=== PATIENT | female | born 1960 | race Caucasian/White ===

== ENCOUNTER 2018-11-21 11:40 | Inpatient (IN) ==
[2018-11-21] MEDS ORDERED: NS 500 ML IV ONE (12:35)
--- NOTE | 2018-11-21 13:37 | Diag Imaging Result Doc PS360 ---
CT HEAD W/O CONTRAST - 11/21/2018 INDICATION: generalized weakness COMPARISON: None FINDINGS: The ventricles and sulci are normal in size and contour. No intracranial mass or hemorrhage. The skull is intact. The sinuses mastoids and middle ears are clear. IMPRESSION: Negative exam. This exam was performed using automated exposure control, adjustment of mA or kV according to patient size, and/or use of iterative reconstruction technique Electronically signed by Maxim Irby 11/21/2018 1:35 PM
[2018-11-21 13:43] LABS: ALB/GLOB RATIO 1.1; ALBUMIN 3.6 g/dL (3.5-5.0); CALCIUM 7.6 mg/dL (8.8-10.2); CREATININE 2.5 mg/dL (0.5-0.9); POTASSIUM 5.4 mmol/L (3.5-5.1); TOTAL BILIRUBIN 0.75 mg/dL (0.20-1.00); TOTAL PROTEIN 6.9 g/dL (6.3-8.3)
--- NOTE | 2018-11-21 14:14 | Diag Imaging Result Doc PS360 ---
EXAM: CHEST-2 VIEWS HISTORY: hypotension, hx of CHF TECHNIQUE: Chest two views COMPARISON: None. FINDINGS: Poor inspiratory effort. The heart is mildly enlarged. There are sternal wires and surgical clips. The vessels are not distended. There are no infiltrates. No pleural effusions. IMPRESSION: Mild cardiomegaly. Electronically signed by Fernando Serrano 11/21/2018 2:12 PM
[2018-11-21 14:15] LABS: BASO# 0.04 X1000 (0.0-0.2); BASO% 0.2 % (0.0-0.8); EOS# 0.09 X1000 (0.0-0.7); EOS% 0.5 % (0.0-10.0); HEMATOCRIT 34.6 % (37.0-47.0); HEMOGLOBIN 10.4 g/dL (12.0-16.0); IMM GRAN# 0.04 X1000 (0.0-0.04); IMM GRAN% 0.2 % (0.0-0.5); LYMPH% 7.6 % (20.5-51.1); MCH 27.6 PG (27-31); MCHC 30.1 g/dL (33-37); MCV 91.8 FL (81-99); MONO# 0.75 X1000 (0.11-0.59); MONO% 4.4 % (1.7-9.3); MPV 10.1 FL (7.4-10.4); NEUT# 14.95 X1000 (1.4-6.5); NEUT% 87.1 % (42.2-75.2); PLT 375 X1000 (130-400); RBC 3.77 XMIL (4.2-5.4); RDW 16.1 % (11.5-14.5); WBC 17.17 X1000 (4.8-10.8)
--- NOTE | 2018-11-21 14:18 | Diag Imaging Result Doc PS360 ---
EXAM: XRAY PELVIS W/HIP 2-3VW LT INDICATION: left hip pain TECHNIQUE: 3 views COMPARISON: None. FINDINGS: There is no discrete fracture, dislocation, or significant intrinsic osseous lesion. The left hip joint appears to be well preserved. The surrounding soft tissues are essentially unremarkable. IMPRESSION: Essentially unremarkable plain radiograph of the pelvis and left hip. Electronically signed by Henrik Ball 11/21/2018 2:15 PM
[2018-11-21 14:54] LABS: BILIRUBIN URINE NEGATIVE (NEGATIVE); BLOOD URINE NEGATIVE (NEGATIVE); COLOR YELLOW; GLUCOSE URINE NEGATIVE (NEGATIVE); KETONE URINE NEGATIVE (NEGATIVE); LEUKOCYTES URINE TRACE (NEGATIVE); NITRITE URINE NEGATIVE (NEGATIVE); PH URINE 5.5; PROTEIN URINE NEGATIVE (NEGATIVE); TURBIDITY URINE CLEAR (CLEAR); UR EPITHELIAL CELLS <10 /HPF (<10); URINE BACTERIA NEGATIVE /HPF; URINE RBC <10 /HPF (<10); URINE SOURCE CATH; URINE WBC <10 /HPF (<10); UROBILINOGEN URINE NORMAL (NORMAL)
--- NOTE | 2018-11-21 15:31 | EKG Report ---
Test Performed on : 11/21/2018 2:40:24 PM Test Reason : hypotension Blood Pressure : / mmHG Vent. Rate : 095 BPM Atrial Rate : 095 BPM P-R Int : 154 ms QRS Dur : 074 ms QT Int : 376 ms P-R-T Axes : 043 080 186 degrees QTc Int : 472 ms Normal sinus rhythm. Low voltage QRS Septal infarct , age undetermined T wave abnormality, consider lateral ischemia Abnormal ECG No previous ECGs available Unconfirmed Result
[2018-11-21 15:43] LABS: LYMPHS 9 % (21-51); MONO 2 % (1-9); SEGS 89 % (42-75)
[2018-11-21 15:44] LABS: LARGE PLATELETS OCCASIONAL
[2018-11-21] MEDS ORDERED: D50W SYRINGE IV ONE (16:00)
[2018-11-21 17:10] LABS: INR 1.19; PROTIME 16.1 Seconds (11.0-16.0)
[2018-11-21 17:10] LABS: UR AMPHETAMINES QUAL NONE DETECTED (NONE DETECT); UR BARBITUATES QUAL NONE DETECTED (NONE DETECT); UR BENZODIAZEPIN QUAL NONE DETECTED (NONE DETECT); UR CANNABINOIDS QUAL NONE DETECTED (NONE DETECT); UR COCAINE QUAL NONE DETECTED (NONE DETECT); UR METHADONE QUAL NONE DETECTED (NONE DETECT); UR OPIATES QUAL NONE DETECTED (NONE DETECT); UR OXYCODONE QUAL NONE DETECTED (NONE DETECT); UR PCP QUAL NONE DETECTED (NONE DETECT)
[2018-11-21] MEDS ORDERED: SODIUM CHLORIDE 0.9% INJ SCH (17:22)
[2018-11-21 17:23] LABS: FREE T4 1.41 ng/dL (0.93-1.70); TSH 3.05 uIUmL (0.27-4.20)
[2018-11-21] MEDS ORDERED: NS 1,000 ML IV ONE ×2 (17:24→22:00)
--- NOTE | 2018-11-21 18:25 | HISTORY AND PHYSICAL ---
DATE OF ADMISSION: 11/21/2018. CC: Left hip pain. HISTORY OF PRESENT ILLNESS: Ms. Altman is a [id number] female from [place], [place] visiting here in [place] for her brother's as he recently . Of note: she was also diagnosed with c-diff colitis around three weeks ago and is still taking her p.o. vancomycin, she was inpatient for one week at one of the local hospitals in her area. She started complaining of left hip pain on Wednesday which was progressively worse throughout the weekend, and she finally came to the ER for evaluation. However, in the ER, she was noted to be lethargic and difficult to arouse. She was noted to be hypotensive on exam as well as slightly tachycardic. A head CT was done which did not show anything acute. Hip x-ray was also done and found to be negative. Laboratory work showed a white count of 17,000, an acute kidney injury with a creatinine of 2.5 and a serum glucose of 49 which was treated appropriately in the ER. Despite that therapy, she remains somewhat lethargic and disoriented, so it was felt that, in combination with her history, laboratory data and vital signs, she would need admission for stabilization. PAST MEDICAL HISTORY: 1. Recent c-diff colitis diagnosis on current p.o. vancomycin. 2. Diabetes mellitus type 2 requiring insulin. 3. Coronary artery disease status post coronary artery bypass grafting last year in [place]. 4. Report of congestive heart failure, EF unknown. 5. Iron deficiency. 6. Hypertension. 7. Hyperlipidemia. SURGICAL HISTORY: Coronary artery bypass grafting. SOCIAL HISTORY: She denies tobacco, alcohol or drug use. She is . Her is at the bedside. She is from [place], [place] which is somewhere in the area of [place]. She is down in [facility] for her brother's . FAMILY HISTORY: Father from [place]. Mother in [place]. Brother recently , unsure of the cause. REVIEW OF SYSTEMS: Difficult to obtain due to lethargy, but a limited 10 point review of systems was obtained and found to be negative with the exception of the HPI. ALLERGIES: NOT RECORDED. HOME MEDICATIONS: 1. Lipitor 80 mg p.o. at hour of sleep. 2. Bumex 1 mg p.o. b.i.d. 3. Coreg 12.5 mg p.o. b.i.d. 4. Clopidogrel 75 mg p.o. daily. 5. Iron sulfate 325 mg p.o. t.i.d. 6. Neurontin 600 mg p.o. 3-4 times a day. 7. Levemir 75 units subcutaneously daily. 8. Isosorbide dinitrate 10 mg p.o. b.i.d. 9. KCl 20 mEq p.o. b.i.d. 10.Vancomycin 125 mg p.o. q. 6 hours. PHYSICAL EXAMINATION: VITAL SIGNS: Blood pressure 95/54, heart rate 95, respiratory rate 16, O2 saturation 96% on room air and temperature is not recorded. GENERAL: Obese, female lying in the hospital bed in no acute distress. NEUROLOGICAL: She is lethargic, but she opens her eyes easily to verbal stimulus. She follows commands without any focal deficits. HEENT: Normocephalic, atraumatic. Pupils are equal but sluggish to light response bilaterally. Oral mucosa is dry and tacky. Posterior oropharynx is clear. NECK: Supple. Trachea is midline. There is no JVD. CHEST: Clear to auscultation. CV: Regular rate and rhythm. S1, S2 noted. There are no murmurs. GI: Soft, nondistended and nontender. Bowel sounds are positive. EXTREMITIES: 1+ edema bilaterally. The left extremity reveals range of motion of the hip is intact without pain on range of motion. DIAGNOSTIC DATA: Head CT is negative. Hip and pelvis x-ray on the left is negative. EKG shows a sinus rhythm with nonspecific ST changes. Chest x-ray shows mild cardiomegaly with poor inspiratory effort. WBC is 17.17, hemoglobin 10.4, hematocrit 34.6 and platelet count 375. Sodium 141, potassium 5.4, chloride 97, CO2 28, anion gap 16, BUN 45, creatinine 2.5, glucose 49, calcium 7.6, AST 14, ALT 15, alk phos 147, and proBNP 6761. Urinalysis is negative. ASSESSMENT AND PLAN: 1. Toxic metabolic encephalopathy: Unclear as to the cause of her encephalopathy. However, a head CT is negative. She is hypotensive and has c-diff as well as hypoglycemia all of which could be causing her symptoms. We will check a drug screen, alcohol level, thyroid function, B12 and folate as well as treat her hypoglycemia and recheck serum glucose. If any worsening of neurological status, may consider an MRI. 2. Sepsis: The patient is tachycardic and hypotensive with a white count and source of c-diff. Blood cultures have been obtained. We will reculture her stool and continue her p.o. vancomycin and hydrate as she is volume depleted. No other source of infection at this time. 3. Acute kidney injury: Baseline unknown. Will check a renal ultrasound, urine electrolytes, and follow strict Is and Os, hydrate and remove any offending medications. If any worsening, we will consult renal. At this time, she is not acidotic, but she is mildly hyperkalemic which we will recheck a BMP and treat accordingly. EKG does not show any changes associated with hyperkalemia. 4. Diabetes mellitus type 2 with hypoglycemia. She has received an amp of D50. We will recheck and follow her sugars closely. Will check a HgbA1c and add PBS/SSI. 5. Coronary artery disease status post coronary artery bypass grafting with reported congestive heart failure: She does have cardiomegaly on chest x-ray, but she denies any overt chest pain, dyspnea. She does have some lower extremity edema, but this is more than likely due to oncotic pressure losses due to protein depleted state. 6. Normocytic anemia. Iron studies pending. 7. Deep vein thrombosis prophylaxis with SCDs, TEDs. Further recommendations to follow. Dictated by BETH Nielsen for Cyril Santana MD cc: BETH Nielsen MD [facility]
[2018-11-21 20:07] LABS: CALCIUM 7.1 mg/dL (8.8-10.2); CREATININE 2.5 mg/dL (0.5-0.9)
--- NOTE | 2018-11-21 20:44 | PROVIDER DOCUMENTATION ---
This chart was entered by Carolina Wyatt Scribe, acting as scribe for Steffanie Rodrigues CRNP. HPI-Musculoskeletal Pain/Inj - GENERAL Chief Complaint: Hip Pain Stated Complaint: LEFT HIP PAIN Time Seen by Provider: 11/21/18 12:07 Source: patient - HX OF PRESENT ILLNESS-MUSKULOSKELTAL Nature of Presenting Problem: 58 yof presents with cc of left hip pain that is radiating to Right lower leg with no injury. Pt is also hypotensive with general weakness x 1 week. Reports began treatment with oral Vancomycin 4 days ago. Pt denies any other symptoms. Quality of Pain: reports: aching Severity in ED: mild Onset/Duration: last week Timing: still present Review of Systems - Adult - REVIEW OF SYSTEMS - ADULT Constitutional: reports: see HPI. denies: chills, fever, fatique Eyes: reports: no symptoms reported Ears, Nose, Mouth & Throat: denies: ear pain, sinus problem, throat pain Cardiovascular: denies: chest pain, irregular heart rate, syncope Respiratory: reports: no symptoms reported Gastrointestinal: denies: hematemesis, frequent heartburn, vomiting Genitourinary: reports: no symptoms reported Musculoskeletal: reports: see HPI, joint pain. denies: frequent leg cramps, joint swelling, neck pain Integumentary: reports: no symptoms reported Neurological: reports: no symptoms reported Psychiatric: reports: no symptoms reported Endocrine: reports: no symptoms reported Hematologic/Lymphatic: reports: no symptoms reported Allergic/Immunologic: reports: no symptoms reported All Other Systems: Reviewed and Negative Past History - Adult - PAST MEDICAL HISTORY-ADULT Review of Records: reports: Nursing Assessment Review, Medications Reviewed, Social history reviewed & non-contributory. Major Childhood Illnesses: reports: denies history Cardiovascular: reports: CHF, HTN, other (cabg) Respiratory: reports: denies history Gastrointestinal: reports: denies history Obstetrical/Gynecological: reports: denies history Genitourinary: reports: denies history Musculoskeletal: reports: denies history Neurological: reports: denies history Endocrine/Immune: reports: Diabetes Other Conditions: reports: denies history - IMMUNIZATION STATUS Childhood Immunizations: See Nurse Assessment Flu Vaccine: See Nurse Assessment - FAMILY HISTORY Family History: reviewed, not pertinent - SOCIAL HISTORY Smoking: denies Substance Use: none/never Physical Exam-Injury Related - Physical Exam-Injury Related Initial Vital Signs Reviewed: Yes General Appearance: alert, other (Pt awake and answers questions appropriately but seems slow to respond and slightly lethargic.) Eyes: PERRL/EOMI, pink conjunctivae. negative: sclera injected, scleral icterus , sunken eyes Head, Ears, Nose, Mouth & Throat: normocephalic/atraumatic, moist mucous membranes Neck: non-tender, full range of motion, supple, normal inspection Respiratory: chest non-tender, lungs clear, normal breath sounds, no pleuratic chest pain, no respiratory distress, no accessory muscle use Cardiovascular: normal peripheral pulses, regular rate, rhythm, no edema, no gallop, no JVD, no murmur Peripheral Pulses: dorsalis-pedis (L): 3+ Abdominal Exam: normal bowel sounds, non tender, soft, no organomegaly, no pulsatile mass. negative: distended, guarding, rigid, rebound, tenderness, hernia, mass, hepatomegaly, spleenomegaly Rectal Exam: deferred Lymphatic: no adenopathy Back Exam: normal inspection, no CVA tenderness Extremity: normal range of motion, no calf tenderness, normal capillary refill, tenderness (ttp left hip), other (2+ pitting edema bilateral ankles) Integumentary: normal color, warm/dry, pallor. negative: cyanosis, diaphoresis , jaundice, mottled Neurologic: grossly normal, no motor/sensory deficits Psych/Mental Status: normal mood/affect, normal thought content, normal thought process, oriented x 3 - Glascow Coma Score Best Eye Response ([place]): (4) open spontaneously Best Verbal Response ([place]): (5) oriented Best Motor Response ([place]): (6) obeys commands Progress - PLAN OF CARE/RESULTS Progress/Plan/Lab Results: Vital Signs - 8 hr 11/21/18 13:02 11/21/18 14:05 11/21/18 14:16 Pulse Rate 98 H 94 H 93 H Respiratory Rate 22 19 18 Blood Pressure 87/57 93/54 91/46 O2 Sat by Pulse Oximetry 98 95 94 L 11/21/18 14:32 11/21/18 15:01 11/21/18 15:31 Pulse Rate 96 H 94 H 95 H Respiratory Rate 23 18 18 Blood Pressure 100/74 95/52 91/52 O2 Sat by Pulse Oximetry 95 97 95 11/21/18 16:01 Pulse Rate 95 H Respiratory Rate 16 Blood Pressure 95/54 O2 Sat by Pulse Oximetry 96 Laboratory Results - last 24 hr 11/21/18 11/21/18 11/21/18 13:13 13:13 13:13 WBC 17.17 H RBC 3.77 L Hgb 10.4 L Hct 34.6 L MCV 91.8 MCH 27.6 MCHC 30.1 L RDW Std Deviation 16.1 H Plt Count 375 MPV 10.1 Immature Gran % (Auto) 0.2 Neut % (Auto) 87.1 H Lymph % (Auto) 7.6 L [place] % (Auto) 4.4 Eos % (Auto) 0.5 Baso % (Auto) 0.2 Immature Gran # (Auto) 0.04 Neut # (Auto) 14.95 H Lymph # (Auto) 1.30 [place] # (Auto) 0.75 H Eos # (Auto) 0.09 Baso # (Auto) 0.04 Segmented Neutrophils 89 H Lymphocytes 9 L Monocytes 2 Large Platelets OCCASIONAL PT INR Sodium 141 Potassium 5.4 H Chloride 97 L Carbon Dioxide 28 Anion Gap 16 BUN 45 H Creatinine 2.5 H Estimated GFR/1.73 m2 20 BUN/Creatinine Ratio 18 Glucose 49 L POC Glucose Estimat Average Glucose Hemoglobin A1c Calculated Osmolality 290 Calcium 7.6 L Magnesium Total Bilirubin 0.75 AST 14 ALT 15 Alkaline Phosphatase 147 H Creatine Kinase Troponin T 0.046 Ciw-R-Foghzdpwnqr Pept Total Protein 6.9 Albumin 3.6 Globulin 3.3 Albumin/Globulin Ratio 1.1 Plasma Lactate Folate TSH Free T4 Urine Source Urine Color Urine Turbidity Urine pH Ur Specific [place] Urine Protein Ur Glucose (Stick) Ur Ketones (Stick) Urine Blood Urine Nitrite Urine Bilirubin Urobilinogen Dipstick Urine Leukocytes Urine WBC (Auto) Urine RBC (Auto) U Epithel Cells (Auto) Urine Bacteria (Auto) Urine Opiates Screen Ur Oxycodone Screen Ur Methadone, Qual Ur Barbiturates Screen Ur Phencyclidine Scrn Ur Amphetamines Screen U Benzodiazepines Scrn Urine Cocaine Screen U Cannabinoids Screen 11/21/18 11/21/18 11/21/18 13:13 13:13 13:13 WBC RBC Hgb Hct MCV MCH MCHC RDW Std Deviation Plt Count MPV Immature Gran % (Auto) Neut % (Auto) Lymph % (Auto) [place] % (Auto) Eos % (Auto) Baso % (Auto) Immature Gran # (Auto) Neut # (Auto) Lymph # (Auto) [place] # (Auto) Eos # (Auto) Baso # (Auto) Segmented Neutrophils Lymphocytes Monocytes Large Platelets PT INR Sodium Potassium Chloride Carbon Dioxide Anion Gap BUN Creatinine Estimated GFR/1.73 m2 BUN/Creatinine Ratio Glucose POC Glucose Estimat Average Glucose 183 Hemoglobin A1c 8.0 H Calculated Osmolality Calcium Magnesium Total Bilirubin AST ALT Alkaline Phosphatase Creatine Kinase Troponin T Fjb-[id number]-Vqkwgdpnjar Pept 6761 H Total Protein Albumin Globulin Albumin/Globulin Ratio Plasma Lactate 1.0 Folate TSH Free T4 Urine Source Urine Color Urine Turbidity Urine pH Ur Specific [place] Urine Protein Ur Glucose (Stick) Ur Ketones (Stick) Urine Blood Urine Nitrite Urine Bilirubin Urobilinogen Dipstick Urine Leukocytes Urine WBC (Auto) Urine RBC (Auto) U Epithel Cells (Auto) Urine Bacteria (Auto) Urine Opiates Screen Ur Oxycodone Screen Ur Methadone, Qual Ur Barbiturates Screen Ur Phencyclidine Scrn Ur Amphetamines Screen U Benzodiazepines Scrn Urine Cocaine Screen U Cannabinoids Screen 11/21/18 11/21/18 11/21/18 13:13 13:13 13:13 WBC RBC Hgb Hct MCV MCH MCHC RDW Std Deviation Plt Count MPV Immature Gran % (Auto) Neut % (Auto) Lymph % (Auto) [place] % (Auto) Eos % (Auto) Baso % (Auto) Immature Gran # (Auto) Neut # (Auto) Lymph # (Auto) [place] # (Auto) Eos # (Auto) Baso # (Auto) Segmented Neutrophils Lymphocytes Monocytes Large Platelets PT 16.1 H INR 1.19 Sodium Potassium Chloride Carbon Dioxide Anion Gap BUN Creatinine Estimated GFR/1.73 m2 BUN/Creatinine Ratio Glucose POC Glucose Estimat Average Glucose Hemoglobin A1c Calculated Osmolality Calcium Magnesium 1.1 L Total Bilirubin AST ALT Alkaline Phosphatase Creatine Kinase Troponin T Onw-E-Ippvswperco Pept Total Protein Albumin Globulin Albumin/Globulin Ratio Plasma Lactate Folate TSH 3.05 Free T4 1.41 Urine Source Urine Color Urine Turbidity Urine pH Ur Specific [place] Urine Protein Ur Glucose (Stick) Ur Ketones (Stick) Urine Blood Urine Nitrite Urine Bilirubin Urobilinogen Dipstick Urine Leukocytes Urine WBC (Auto) Urine RBC (Auto) U Epithel Cells (Auto) Urine Bacteria (Auto) Urine Opiates Screen Ur Oxycodone Screen Ur Methadone, Qual Ur Barbiturates Screen Ur Phencyclidine Scrn Ur Amphetamines Screen U Benzodiazepines Scrn Urine Cocaine Screen U Cannabinoids Screen 11/21/18 11/21/18 11/21/18 13:13 13:13 14:39 WBC RBC Hgb Hct MCV MCH MCHC RDW Std Deviation Plt Count MPV Immature Gran % (Auto) Neut % (Auto) Lymph % (Auto) [place] % (Auto) Eos % (Auto) Baso % (Auto) Immature Gran # (Auto) Neut # (Auto) Lymph # (Auto) [place] # (Auto) Eos # (Auto) Baso # (Auto) Segmented Neutrophils Lymphocytes Monocytes Large Platelets PT INR Sodium Potassium Chloride Carbon Dioxide Anion Gap BUN Creatinine Estimated GFR/1.73 m2 BUN/Creatinine Ratio Glucose POC Glucose Estimat Average Glucose Hemoglobin A1c Calculated Osmolality Calcium Magnesium Total Bilirubin AST ALT Alkaline Phosphatase Creatine Kinase 154 Troponin T Zfv-Q-Caaqdzryeed Pept Total Protein Albumin Globulin Albumin/Globulin Ratio Plasma Lactate Folate 14.2 TSH Free T4 Urine Source CATH Urine Color YELLOW Urine Turbidity CLEAR Urine pH 5.5 Ur Specific [place] 1.000 Urine Protein NEGATIVE Ur Glucose (Stick) NEGATIVE Ur Ketones (Stick) NEGATIVE Urine Blood NEGATIVE Urine Nitrite NEGATIVE Urine Bilirubin NEGATIVE Urobilinogen Dipstick NORMAL Urine Leukocytes TRACE A Urine WBC (Auto) <10 Urine RBC (Auto) <10 U Epithel Cells (Auto) <10 Urine Bacteria (Auto) NEGATIVE Urine Opiates Screen Ur Oxycodone Screen Ur Methadone, Qual Ur Barbiturates Screen Ur Phencyclidine Scrn Ur Amphetamines Screen U Benzodiazepines Scrn Urine Cocaine Screen U Cannabinoids Screen 11/21/18 11/21/18 15:25 17:32 WBC RBC Hgb Hct MCV MCH MCHC RDW Std Deviation Plt Count MPV Immature Gran % (Auto) Neut % (Auto) Lymph % (Auto) [place] % (Auto) Eos % (Auto) Baso % (Auto) Immature Gran # (Auto) Neut # (Auto) Lymph # (Auto) [place] # (Auto) Eos # (Auto) Baso # (Auto) Segmented Neutrophils Lymphocytes Monocytes Large Platelets PT INR Sodium Potassium Chloride Carbon Dioxide Anion Gap BUN Creatinine Estimated GFR/1.73 m2 BUN/Creatinine Ratio Glucose POC Glucose 119 H Estimat Average Glucose Hemoglobin A1c Calculated Osmolality Calcium Magnesium Total Bilirubin AST ALT Alkaline Phosphatase Creatine Kinase Troponin T Kot-W-Ghrtciquaev Pept Total Protein Albumin Globulin Albumin/Globulin Ratio Plasma Lactate Folate TSH Free T4 Urine Source Urine Color Urine Turbidity Urine pH Ur Specific [place] Urine Protein Ur Glucose (Stick) Ur Ketones (Stick) Urine Blood Urine Nitrite Urine Bilirubin Urobilinogen Dipstick Urine Leukocytes Urine WBC (Auto) Urine RBC (Auto) U Epithel Cells (Auto) Urine Bacteria (Auto) Urine Opiates Screen NONE DETECTED Ur Oxycodone Screen NONE DETECTED Ur Methadone, Qual NONE DETECTED Ur Barbiturates Screen NONE DETECTED Ur Phencyclidine Scrn NONE DETECTED Ur Amphetamines Screen NONE DETECTED U Benzodiazepines Scrn NONE DETECTED Urine Cocaine Screen NONE DETECTED U Cannabinoids Screen NONE DETECTED Orders Category Date Time Status [facility] Routine AdmDCTranf 11/21/18 16:42 Active Apply Mechanical Device [QM] ORDERED Care 11/21/18 18:58 Active Blood Glucose Finger Stick [FSBS/Accucheck Result] NOW Care 11/21/18 16:27 Completed Cardiac Monitoring DIRECTED Care 11/21/18 12:36 Completed FSBS/Accucheck Result Q4HR Care 11/21/18 16:43 Active Vital Signs Order Q 4-HR ASSESS Care 11/21/18 16:43 Completed Vital Signs Order Q15M Care 11/21/18 12:36 Completed Diabetic Diet Diet 11/21/18 16:43 Active CHEST-2 VIEWS [RAD] Stat Exams 11/21/18 12:[address] HEAD W/O CONTRAST [CT] Stat Exams 11/21/18 12:42 Completed US RENAL 2 (RETROPER) COMPLETE [US] Routine Exams 11/21/18 16:44 Ordered XRAY PELVIS W/HIP 2-3VW LT [RAD] Stat Exams 11/21/18 12:37 Completed A1C HGB W EST AVG GLUCOSE [CHEM] Timed Lab 11/21/18 13:13 Completed BLOOD CULTURE [BLDCUL] Stat Lab 11/21/18 13:13 Results BMP [BASIC METABOLIC PANEL] [CHEM] Stat Lab 11/21/18 19:32 Completed C DIFF ANTIGEN [STOOL] Routine Lab 11/21/18 20:00 Received C DIFF TOXIN [STOOL] Routine Lab 11/21/18 20:00 Received CBC WITH DIFF [HEME] Stat Lab 11/21/18 13:13 Completed CK PROFILE [SP CHEM] Q6H Lab 11/21/18 13:13 Completed CK PROFILE [SP CHEM] Q6H Lab 11/21/18 22:45 Ordered CK PROFILE [SP CHEM] Q6H Lab 11/22/18 04:45 Ordered COMPREHENSIVE METABOLIC PANEL [CHEM] DAILY Lab 11/22/18 06:00 Ordered COMPREHENSIVE METABOLIC PANEL [CHEM] DAILY Lab 11/23/18 06:00 Ordered COMPREHENSIVE METABOLIC PANEL [CHEM] DAILY Lab 11/24/18 06:00 Ordered COMPREHENSIVE METABOLIC PANEL [CHEM] Stat Lab 11/21/18 13:13 Completed EOS URINE SMEAR [HEME] Timed Lab 11/21/18 16:44 Ordered FOLATE Timed Lab 11/21/18 13:13 Completed FREE T4 Timed Lab 11/21/18 13:13 Completed LACTATE, PLASMA [CHEM] Stat Lab 11/21/18 13:13 Completed LIPID PROFILE W/DIR LDL [LIPIDS] Routine Lab 11/22/18 06:00 Ordered MAGNESIUM [CHEM] DAILY Lab 11/22/18 06:00 Ordered MAGNESIUM [CHEM] Timed Lab 11/21/18 13:13 Completed OCCULT BLOOD DIAGNOSTIC [STOOL] Routine Lab 11/21/18 20:00 Received OVA AND PARASITE W/TRICHROME [STOOL] Routine Lab 11/21/18 20:00 Received PRO B-NATRIURETIC PEPTIDE Stat Lab 11/21/18 13:13 Completed PROTEIN-CREATININE RATIO [URCHEM] Timed Lab 11/21/18 16:44 Uncollected PROTIME WITH INR [COAG] Timed Lab 11/21/18 13:13 Completed STOOL CULTURE [RM] Routine Lab 11/21/18 20:00 Received TROPONIN T Q6H Lab 11/21/18 19:32 Completed TROPONIN T Q6H Lab 11/21/18 22:45 Ordered TROPONIN T Q6H Lab 11/22/18 04:45 Ordered TROPONIN T Stat Lab 11/21/18 13:13 Completed TSH Timed Lab 11/21/18 13:13 Completed UA NIMS W/REFLEX CULT [URINALYSIS] Stat Lab 11/21/18 14:39 Completed UR CREAT RANDOM [URCHEM] Timed Lab 11/21/18 16:44 Ordered UR OSMOLALITY [CHEM] Timed Lab 11/21/18 16:44 Ordered UR SODIUM [URCHEM] Timed Lab 11/21/18 16:44 Ordered URINE CULTURE [RM] Routine Lab 11/21/18 15:25 Received URINE DRUG SCREEN Stat Lab 11/21/18 15:25 Completed WBC STOOL [STOOL] Routine Lab 11/21/18 20:00 Received 0.9% Sodium Chloride Inj [Ns] 1,000 ml Med 11/21/18 17:24 Active IV 50 mls/hr 0.9% Sodium Chloride Inj [Ns] 500 ml Med 11/21/18 12:35 Discontinued IV 999 mls/hr Clopidogrel [Plavix] Med 11/22/18 09:00 Active 75 mg PO DAILY Dextrose 50% Syringe [D50w Syringe] Med 11/21/18 16:00 Discontinued 50 ml IV NOW ONE Ferrous Sulfate Med 11/22/18 08:00 Active 325 mg PO TID CC Insulin Human Regular [Humulin R] Med 11/21/18 21:00 Active See Protocol SUBQ 0700,1100,1600,2100 Pantoprazole [Protonix] Med 11/21/18 21:00 Active 40 mg IV Q24H Sodium Chloride 0.9% Med 11/21/18 17:22 Active 10 ml INJ DIRECTED Vancomycin [Vancocin] Med 11/21/18 20:00 Active 125 mg PO Q6H EKG [EKG] Stat Ther 11/21/18 12:36 Draft Echo Spec/Color Dop W/O Contra Routine Ther 11/22/18 06:00 Ordered Transfer/Admit Order [TRANSFER] Routine Transfer 11/21/18 17:01 Completed 1615- Spoke with SUKHDEV Benavidez [facility] regarding pt case and admission. [facility] accepts in admission. Pt aware and is in agreement. BP responsive to bolus- no other changes since previous assessment. Result Diagrams: 11/21/18 13:13 11/21/18 19:32 - EKG 1 Time of EKG reading by physician:: 14:40 EKG Read and Signed by:: Jas Grady EKG Interpretation (*Must complete 3 of following elements*): Abnormal (septal infarct age undetermined, T wave abnormality consider lateral ischemia) Rate: 95 Rhythm: nsr [place]: normal QRS: other (low voltage) DC Interval: normal Departure - Departure Date of Disposition Decision: 11/21/18 Time of Disposition Decision: 16:15 DIAGNOSIS: C. difficile colitis, Acute kidney injury, Hypoglycemia Hypotension Qualifiers: Hypotension type: unspecified hypotension type Qualified Code(s): I95.9 - Hypotension, unspecified Diabetes Qualifiers: Diabetes mellitus type: type 2 Diabetes mellitus senior living insulin use: without senior living use Diabetes mellitus complication status: with unspecified complications Qualified Code(s): E11.8 - Type 2 diabetes mellitus with unspecified complications Disposition: ADMITTED INPATIENT 09 Certified Medical Emergency: Emergent Condition: Stable - Critical Care Note This patient required my direct & personal management of CC.: No Attestation - Physician/ MIGUEL Attestation Patient care was provided by Advanced Practice Provider:: Yes Advanced Practice Provider:: Steffanie Rodrigues Advanced Practice Provider documentation review:: The Mid-level provider documentation, treatment plan and medical decision making was reviewed by the physician who agrees with all treatment and medical decision making by the MLP. The physician spent face to face time with patient:: No Advanced Practice Provider documentation review:: Supervising physician onsite and consulted in the evaluation and care of this patient. The physician did not have a face to face encounter with the patient. This chart was documented by the indicated scribe, (Carolina Wyatt Scribe) and accurately reflects the services I performed and decisions made by me, Steffanie Rodrigues CRNP, as attested by the provider's signature.
[2018-11-21] MEDS ORDERED: HUMULIN R SUBQ SCH (21:00)
[2018-11-21] MEDS ORDERED: PROTONIX IV SCH (21:00)
[2018-11-21] MEDS: VANCOCIN PO SCH (21:31)
[2018-11-21 22:17] LABS: UR CREAT RANDOM 37.8 mg/dL (11-20)
[2018-11-21] MEDS ORDERED: CALMOSEPTINE OINTMENT TOP PRN (22:29)
[2018-11-21 22:33] LABS: PROTEIN CREAT RATIO 0.5; UR CREAT RANDOM 37.3 mg/dL (11-20); UR PROT RANDOM 16.9 mg/dL
[2018-11-22] MEDS: VANCOCIN PO SCH ×2 (03:23→08:41)
[2018-11-22] MEDS: HUMULIN R SUBQ SCH ×3 (05:18→13:03)
[2018-11-22 05:55] LABS: ALB/GLOB RATIO 0.9; CALCIUM 7.1 mg/dL (8.8-10.2); CREATININE 2.1 mg/dL (0.5-0.9); TOTAL BILIRUBIN 0.46 mg/dL (0.20-1.00); TOTAL PROTEIN 6.2 g/dL (6.3-8.3)
[2018-11-22] MEDS: FERROUS SULFATE PO SCH ×2 (08:41→13:01)
[2018-11-22] MEDS ORDERED: PLAVIX PO SCH (09:00)
[2018-11-22] MEDS ORDERED: MAGNESIUM SULFATE 2 GM/S.W.I. 2 GM/50 ML IVPB IV ONE (09:02)
[2018-11-22 11:57] VITALS: BP 106/67
--- NOTE | 2018-11-23 03:13 | DISCHARGE SUMMARY ---
ADMISSION DATE: 11/21/2018 DISCHARGE DATE: 11/22/2018 DISCHARGE DIAGNOSES: 1. Encephalopathy, resolved. 2. Sepsis. 3. Possible acute kidney injury, baseline unknown. 4. Type 2 diabetes with hypoglycemia. 5. History of coronary artery disease status post coronary artery bypass graft with possible heart failure. 6. Normocytic anemia. 7. Hypomagnesemia. HOSPITAL COURSE: A 58-year-old, female, admitted on 11/21/2018. this patient is from [place], [place], and she was just visiting here in [place] for her brother's , as he recently . She has a recent history of C difficile colitis and, apparently, that was diagnosed a few weeks ago, but she was not taking her p.o. vancomycin until yesterday. She believed that if she takes the vancomycin probably the diarrhea will be worse. She is still having some diarrhea but, as per the patient, it is better compared with a few weeks ago. Apparently, she was inpatient for a week at the local hospital in her area. She started complaining of left hip pain last Wednesday and it has been getting worse through the weekend, and she came in finally to the ER for evaluation, but in the ER, she was noted to be lethargic and difficult to arouse. As per the , she has not been sleeping for the past few days due to her brothers situation, and she has not been eating or drinking that much also. She was noted to be hypotensive and slightly tachycardic as well. Head CT did not show any acute abnormality. Hip x-ray was negative as well. Laboratory showed a white blood cell count of 17, a kidney injury which we do not know if this is new or old, but the patient state today that she has been having kidney dysfunction, but she does not know her baseline. Her glucose upon admission was low at 49, and she was given treatment for that. She was admitted to the CIC unit and evaluated today again. She was feeling much better. She was awake. She was not complaining of any pain today, just mild discomfort at the right hip. My physical exam was benign. She just looks a little bit depressed but she was not complaining of chest pain or shortness of breath. She still was tachycardic, but she was not complaining of shortness of breath or chest pain, like I said. I told the patient that we need to continue with the treatment. We need to continue with the p.o. vancomycin for her C difficile colitis. We had requested, again, a C difficile antigen and C difficile toxin, and both were positive. Blood cultures were negative, and the urine culture has been negative as well as the stool culture so far negative as well. She explained to me that she needed to go to the brother's today, and I explained to her that she still a little bit sick and she probably needs to stay for more treatment, but she decided to leave [facility]. I told her that she needs to be hydrated and take the medications as prescribed. She has been on vancomycin and she has the medication with her, but again, she was not taking the medication because she was concerned about more diarrhea with the treatment. DISCHARGE DISPOSITION: Patient has decided to leave [facility]. cc: Flakito Marina MD
--- NOTE | 2018-11-23 06:20 | ECHO REPORT ---
ORDER DATE: 11/22/2018 INDICATIONS: A 58-year-old female, congestive heart failure, cardiomyopathy. M-MODE MEASUREMENTS: Left ventricle end diastole: 4.5 cm. Left ventricle end systole: 3.5 cm. Posterior wall: 0.8 cm. Interventricular septum: 1.1 cm. Left atrium: Not measured. Inferior vena cava: 2.0 cm. SUMMARY OF 2-DIMENSIONAL IMAGING: The study is technically very limited. 1. The left ventricular systolic function appears to be mildly decreased, estimated visually at 45%-50%. The study is really limited in this case. 2. Aortic valve appears to be normal. 3. Mitral valve looks normal with mild degree of regurgitation. 4. Pulse wave Doppler of mitral inflow shows single filling wave. The patient appears to be in atrial fibrillation. 5. Tricuspid valve shows moderate degree of regurgitation. 6. Pulmonary artery pressure is estimated at 58 mmHg. 7. Pulmonic valve appears to be grossly normal. Color flow mapping unremarkable. 8. There is no pericardial effusion, mass and no thrombus. Clinical correlation recommended. Consider repeating the study when the patient is more stable. cc: MD Kadeem Selby CRNP
== END 2018-11-22 14:34 | disposition left against medical advice (07) | DRG 871 ==
LOC: ED 11:40 → 3S 18:15 → SUATTDRO 18:15
PROVIDERS: ATTEND Internal Medicine
CPT/HCPCS: 51701; 70450; 71020; 71046; 73502; 80048; 80053; 80061; 80101; 80301; 80307; 80324; 80345; 80346; 80353; 80358; 80361; 80365; 81001; 82272; 82550; 82570; 82746; 82948; 83036; 83605; 83721; 83735; 83880; 83935; 83992; 84156; 84300; 84439; 84443; 84484; 85025; 85610; 87040; 87045; 87046; 87077; 87088; 87177; 87205; 87324; 87449; 88313; 89055; 93005; 93306; 96374; 99285; A9270; C9113; G0431; G0434; G0479; G0480; J3475; J7030; J7040; P9612; S0164; XXXXX